=== PATIENT | male | born 1945 | race Caucasian/White ===

== ENCOUNTER 2018-11-10 08:17 | Inpatient (IN) | payer MEDICARE, OTHER ==
[2018-11-09 12:26] LABS: BASOPHILS # (AUTO) 0.1 X10'3 (0-0.2); BASOPHILS % (AUTO) 0.8 % (0-1); EOSINOPHILS # (AUTO) 0.1 X10'3 (0-0.9); EOSINOPHILS % (AUTO) 0.7 % (0-6); LYMPHOCYTES # (AUTO) 1.8 X10'3 (1.1-4.8); LYMPHOCYTES % (AUTO) 22.6 % (21-51); MEAN CORPUSCULAR HEMOGLOBIN 31.2 PG (27.0-31.0); MEAN CORPUSCULAR HGB CONC 33.7 g/dL (33.0-36.5); MEAN CORPUSCULAR VOLUME 92.6 FL (78-98); MEAN PLATELET VOLUME 7.9 FL (7.4-10.4); MONOCYTES # (AUTO) 0.5 X10'3 (0-0.9); NEUTROPHILS # (AUTO) 5.5 X10'3 (1.8-7.7); NEUTROPHILS % (AUTO) 69.9 % (42-75); PRE OP HEMOGLOBIN 14.8 g/dL (14.0-17.9); PRE OP PLATELET COUNT 277 X10'3 (140-440); RED BLOOD COUNT 4.76 X10'6 (4.70-6.10); RED CELL DISTRIBUTION WIDTH 13.1 % (11.5-14.5)
[2018-11-09 12:42] LABS: ALBUMIN 3.9 G/DL (3.4-5.0); ALKALINE PHOSPHATASE 101 IU/L (46-116); BLOOD UREA NITROGEN 12 MG/DL (7-18); BUN/CREATININE RATIO 13.5 (5.4-32.0); CALCIUM 9.7 MG/DL (8.5-10.1); CHLORIDE 105 MMOL/L (99-107); CREATININE 0.89 MG/DL (0.60-1.10); PRE OP ALT 29 U/L (30-65); PRE OP ANION GAP 8 (8-16); PRE OP AST 18 U/L (10-37); PRE OP BILIRUB, TOTAL 0.3 MG/DL (0.0-1.0); PRE OP GLUCOSE 106 MG/DL (70-104); PRE OP POTASSIUM 4.4 MMOL/L (3.4-5.1); PRE OP SODIUM 141 MMOL/L (135-145); TOTAL CARBON DIOXIDE 28.4 MMOL/L (24-32); TOTAL PROTEIN 7.8 G/DL (6.4-8.2); eGFR 84 ML/MIN
[2018-11-10] VITALS (12 sets, daily range): BP systolic 89–159; BP diastolic 53–87
[~2018-11-10] VITALS: Ht 172.7 cm; Wt 77.1 kg
[~2018-11-10 08:17] MED LIST: BACL10TA PO; SULF1TAB49 PO; TERA1CAP4 PO
[2018-11-10] MEDS ORDERED: vancomycin inj 1,500 MG in normal saline 300ml IV soln IV ONE (09:30)
[2018-11-10] MEDS ORDERED: gabapentin 300mg capsule PO ONE (09:30)
[2018-11-10] MEDS ORDERED: ringers solution, lacted 1,000 ML IV SCH ×2 (09:30→11:45)
[2018-11-10] MEDS ORDERED: metoclopramide 5 mg/ml inj IV ONE (09:30)
[2018-11-10] MEDS ORDERED: celeCOXIB 100mg capsule PO ONE (09:30)
[2018-11-10] MEDS ORDERED: acetaminophen 325mg tablet PO ONE (09:30)
[2018-11-10] MEDS ORDERED: cefazolin/dext.iso 2gm/100 ML IV ONE (09:30)
[2018-11-10] MEDS ORDERED: famotidine 20mg tablet PO ONE (09:30)
[2018-11-10] MEDS ORDERED: oxyCODONE SR 10mg (sust. release) tab -2 tabs (20mg) PO ONE (09:30)
[2018-11-10] MEDS ORDERED: tranexamic acid inj. 1,000 MG in normal saline 100 ML IV ONE (09:30)
[2018-11-10] MEDS ORDERED: fentaNYL/PF 50MCG/1 ML 2ML syringe ONE (10:50)
[2018-11-10] MEDS ORDERED: midazolam 2 mg/2 ml injection ONE (11:13)
[2018-11-10] MEDS ORDERED: BUPIVAcaine/PF 2.5mg/ml (0.25%) 10ml vial ONE (11:26)
[2018-11-10] MEDS ORDERED: HYDROmorphone inj. 0.5 MG/0.5 ML DISP.SYRIN IV PRN ×2 (11:45)
[2018-11-10] MEDS ORDERED: ondansetron/PF 4mg/2ml inj IV PRN (11:45)
[2018-11-10] MEDS ORDERED: diphenhydrAMINE 50 mg/ml inj ONE (11:50)
[2018-11-10] MEDS ORDERED: propofol inj 20 ML IV ONE (11:50)
[2018-11-10] MEDS ORDERED: LIDOcaine 1%/PF 5ML 10 MG/ML VIAL ONE (11:50)
[2018-11-10] MEDS ORDERED: ePHEDrine 50MG/ML INJ. ONE (11:50)
--- NOTE | 2018-11-10 12:10 | NUR ---
Received from OR via [facility] , accompanied by Anesthesiologist DR JAQUEZ and report given by Anesthesiolgist. SENSATION NOTED AT ANKLE LEVEL. PT ABLE TO WIGGLE TOES BILATERALLY. DRSG TO RIGHT HIP CDI. STRONG PALAPABLE PEDAL PULSE TO RIGHT FOOT. PT DENIES PAIN AND NAUSEA. PT REQUESTS COFFEE.
[2018-11-10] MEDS ORDERED: HYDROcodone/acetaminophen 10/325mg tab PO ONE (12:35)
[2018-11-10] MEDS: morphine 4 MG/ML inj SYRINge IV PRN ×3 (12:40→12:52)
--- NOTE | 2018-11-10 14:10 | NUR ---
PT WAS DISCHARGED TO HOME SAFELY VIA W/C. PT HAS FULL SENSATION, ABLE TO AMBULATE SAFELY, STATED READINESS FOR DC TO HOME. DRSG TO RIGHT HIP REMAINS CDI. PT TOLERATED CRACKERS, COFFEE AND WATER. DENIES SIGNIFICANT PAIN AND NAUSEA. STATES PAIN IS 2-4/10 AND IS TOLERABLE.
== END 2018-11-10 14:10 | disposition home or self-care (01) | DRG 499 ==
LOC: PAS IN 08:17 → EDSTATUS 11:30
PROVIDERS: ADMIT Orthopaedic Surgery; ATTEND Orthopaedic Surgery
PROC: 0QP604Z Removal of Internal Fixation Device from Right Upper Femur, Open Approach (ICD-10-PCS; principal; 2018-11-10 10:37)
DX: T84.114A Breakdown (mechanical) of internal fixation device of right femur, initial encounter (principal); Y83.1 Surgical operation with implant of artificial internal device as the cause of abnormal reaction of the patient, or of later complication, without mention of misadventure at the time of the procedure; M16.11 Unilateral primary osteoarthritis, right hip; Z87.891 Personal history of nicotine dependence; Y92.89 Other specified places as the place of occurrence of the external cause
CPT/HCPCS: 36415; 71046; 73502; 76000; 80053; 82948; 85025; 87081; A7000; G0378; J1200; J2250; J2270; J2704; J2765; J3010; J3370; J3490; J7120

== ENCOUNTER 2018-11-15 07:13 | Emergency (ER) | payer MEDICARE, OTHER ==
[~2018-11-15] VITALS: Ht 172.7 cm; Wt 78.4 kg
[2018-11-15 07:55] LABS: BASOPHILS # (AUTO) 0.1 X10'3 (0-0.2); BASOPHILS % (AUTO) 0.6 % (0-1); EOSINOPHILS # (AUTO) 0.1 X10'3 (0-0.9); EOSINOPHILS % (AUTO) 0.7 % (0-6); HEMATOCRIT 38.4 % (42.0-52.0); HEMOGLOBIN 13.1 g/dl (14.0-17.9); LYMPHOCYTES # (AUTO) 1.5 X10'3 (1.1-4.8); LYMPHOCYTES % (AUTO) 15.1 % (21-51); MEAN CORPUSCULAR HGB CONC 34.2 g/dL (33.0-36.5); MEAN CORPUSCULAR VOLUME 90.8 FL (78-98); MEAN PLATELET VOLUME 7.7 FL (7.4-10.4); MONOCYTES # (AUTO) 0.8 X10'3 (0-0.9); NEUTROPHILS # (AUTO) 7.5 X10'3 (1.8-7.7); NEUTROPHILS % (AUTO) 75.6 % (42-75); PLATELET COUNT 301 X10'3 (140-440); RED BLOOD COUNT 4.23 X10'6 (4.70-6.10); RED CELL DISTRIBUTION WIDTH 12.7 % (11.5-14.5); WHITE BLOOD COUNT 9.9 X10'3 (4.5-11.0)
[2018-11-15 08:15] LABS: PARTIAL THROMBOPLASTIN TIME 28 SECONDS (22-32)
[2018-11-15 08:21] LABS: ALANINE AMINOTRANSFERASE 32 U/L (12-78); ALBUMIN 3.4 G/DL (3.4-5.0); ALBUMIN/GLOBULIN RATIO 0.9 (1.1-1.5); ALKALINE PHOSPHATASE 86 IU/L (46-116); ANION GAP 10 (8-16); ASPARTATE AMINO TRANSFERASE 18 U/L (10-37); BILIRUBIN,TOTAL 0.4 MG/DL (0.1-1.0); BLOOD UREA NITROGEN 19 MG/DL (7-18); BUN/CREATININE RATIO 17.8 (5.4-32.0); CALCIUM 9.9 MG/DL (8.5-10.1); CHLORIDE 101 MMOL/L (99-107); CREATININE 1.07 MG/DL (0.60-1.10); GLUCOSE 148 MG/DL (70-104); POTASSIUM 3.8 MMOL/L (3.5-5.1); SODIUM 137 MMOL/L (135-145); TOTAL CARBON DIOXIDE 25.9 MMOL/L (24-32); TOTAL PROTEIN 7.3 G/DL (6.4-8.2); eGFR 68 ML/MIN
[2018-11-15] MEDS ORDERED: normal saline 1000ML IV soln IVB ONE (08:40)
[2018-11-15 08:50] LABS: CLARITY,URINE CLEAR (Clear); COLOR,URINE STRAW (Yellow); GLUCOSE, URINE NEGATIVE (Neg); KETONES,URINE NEGATIVE (Neg); LEUKOCYTE ESTERASE ,URINE NEGATIVE (Neg); NITRITES, URINE NEGATIVE (Neg); OCCULT BLOOD,URINE NEGATIVE (Neg); PH,URINE 5.5 (4.8-8.0); PROTEIN,URINE NEGATIVE (Neg); UROBILINOGEN,URINE 0.2 E.U/dL (0.2-1.0)
[2018-11-15 08:53] LABS: UA COLLECTION TYPE CLN CATCH MIDSTREAM
[2018-11-15 09:55] VITALS: BP 130/70
== END 2018-11-15 09:56 | disposition home or self-care (01) ==
LOC: ER 07:13
DX: R10.84 Generalized abdominal pain (principal); G89.29 Other chronic pain; Z88.5 Allergy status to narcotic agent; Z88.8 Allergy status to other drugs, medicaments and biological substances; Z79.899 Other long term (current) drug therapy; Z90.49 Acquired absence of other specified parts of digestive tract; Z98.890 Other specified postprocedural states
CPT/HCPCS: 36415; 71045; 80053; 81003; 83605; 84145; 85025; 85610; 85730; 87040; 99284; J7030